=== PATIENT | female | born 1960 | race Two or more races ===

== ENCOUNTER → 2019-06-21 | Emergency (ER) | payer BC ==
[~2019-06-21] VITALS: Ht 162.6 cm; Wt 61.2 kg
[2019-06-21 17:53] VITALS: BP 117/70
--- NOTE | 2019-06-21 19:08 | NUR ---
Patient agrees to call pmd in 2 days an follow up PMD verbalized understanding
--- NOTE | 2019-06-21 19:08 | NUR ---
Patient discharged to home in stable condition. Written and verbal after care instructions given. Patient verbalizes understanding of instruction.
== END | disposition home or self-care (01) ==
LOC: ER 17:36
DX: S52.591A Other fractures of lower end of right radius, initial encounter for closed fracture (principal); Z88.1 Allergy status to other antibiotic agents; W01.0XXA Fall on same level from slipping, tripping and stumbling without subsequent striking against object, initial encounter; Y93.89 Activity, other specified; Y92.89 Other specified places as the place of occurrence of the external cause; Y99.8 Other external cause status
CPT/HCPCS: 73110

== ENCOUNTER 2019-07-23 12:34 | Emergency (ER) | payer BC ==
[~2019-07-23] VITALS: Ht 162.6 cm; Wt 63.5 kg
[2019-07-23 12:46] VITALS: BP 136/75
== END 2019-07-23 14:26 | disposition home or self-care (01) ==
LOC: ER 12:34
DX: S92.511A Displaced fracture of proximal phalanx of right lesser toe(s), initial encounter for closed fracture (principal); Z88.1 Allergy status to other antibiotic agents; W22.8XXA Striking against or struck by other objects, initial encounter; Y93.01 Activity, walking, marching and hiking; Y92.89 Other specified places as the place of occurrence of the external cause; Y99.8 Other external cause status
CPT/HCPCS: 73660-TC